=== PATIENT | female | born 2000 | race Two or more races ===

== ENCOUNTER 2024-11-14 20:49 | Emergency (ER) | payer OTHER ==
[~2024-11-14] VITALS: Ht 152.4 cm; Wt 40.8 kg
[2024-11-14 23:46] LABS: HEMATOCRIT 34.1 % (36.0-45.00); MEAN CELL VOLUME 79.3 fL (80.00-100.00); MEAN CORPUSCULAR HEMOGLOBIN 25.5 pg (27.00-32.0); MEAN CORPUSCULAR HGB CONC 32.2 g/dl (32.0-36.0); PLATELET COUNT 296 K/uL (150-450); RED CELL DISTRIBUTION WIDTH 17.8 % (11.5-14.5)
[2024-11-15 00:06] LABS: URINE APPEARANCE Clear; URINE BILIRRUBIN Negative (NEGATIVE); URINE BLOOD Negative; URINE COLOR Yellow; URINE GLUCOSE Negative (NEGATIVE); URINE KETONE Trace (NEGATIVE); URINE LEUKOCYTE Negative; URINE NITRATE Negative; URINE PROTEIN Negative (NEGATIVE); URINE UROBILINOGEN 0.2 E.U./dl
[2024-11-15 00:10] LABS: URINE BACTERIA 241.1 uL (0.0-1933); URINE EPITHELIAL CELLS 21.8 uL (0.0-38.8); URINE RBC 5.3 uL (0.0-20.8); URINE WBC 8.3 uL (0.0-23.2)
[2024-11-15 00:11] LABS: BILIRUBIN TOTAL 0.67 mg/dL (0.3-1.2); CREATININE SERUM 0.64 mg/dL (0.55-1.02); GFR 113.06; GLOBULINA 3.2 G/DL (2.4-3.5); POTASSIUM 3.87 mEq/L (3.5-5.1); TOTAL PROTEIN 7.2 gm/dL (6.4-8.2)
[2024-11-15 00:19] LABS: URINE CAST 0.44 uL (0.0-1.40)
== END 2024-11-15 03:07 | disposition home or self-care (01) ==
LOC: ER 20:51
DX: O26.891 Other specified pregnancy related conditions, first trimester (principal); Z3A.01 Less than 8 weeks gestation of pregnancy; F41.8 Other specified anxiety disorders; R40.0 Somnolence